=== PATIENT | female | born 1980 | race Asian ===

== ENCOUNTER 2017-06-01 13:10 | Inpatient (IN) | payer OTHER ==
[~2017-06-01] VITALS: Ht 160 cm; Wt 65.8 kg
[~2017-06-01 13:10] MED LIST: IRON65TA3 PO; PREN-385 PO
[2017-06-01] MEDS ORDERED: TERBUTALINE 1 MG/ML VIAL SUBQ ONE (13:25)
[2017-06-01] MEDS ORDERED: LACTATED RINGERS 1,000 ML IV SCH (13:30)
[2017-06-01] MEDS ORDERED: TRIAMCINOLONE 40 MG/ML 5ML VIAL ONE (13:48)
[2017-06-01] MEDS ORDERED: ONDANSETRON 4 MG/2 ML VIAL ONE (13:59)
[2017-06-01] MEDS ORDERED: METOCLOPRAMIDE 10 MG/2 ML INJ VIAL ONE (13:59)
[2017-06-01] MEDS ORDERED: MORPHINE SULFATE 10 MG/ML SYR ONE (14:00)
[2017-06-01] MEDS ORDERED: MORPHINE PRES FREE 10 MG/10 ML AMP IV ONE (14:00)
[2017-06-01] MEDS ORDERED: ceFAZolin 1,000 MG VIAL ONE ×2 (14:10→22:08)
[2017-06-01] MEDS: OXYTOCIN 10 UNITS/ML VIAL ONE ×2 (14:25→15:14)
[2017-06-01] MEDS ORDERED: NALOXONE 0.4 MG/ML VIAL IVP PRN ×2 (14:30)
[2017-06-01] MEDS ORDERED: diphenhydrAMINE 50 MG/ML VIAL IVP PRN (14:30)
[2017-06-01] MEDS ORDERED: OXYTOCIN 20 UNITS/LR PREMIX 1,000 ML IV SCH (14:30)
[2017-06-01] MEDS ORDERED: MEPERIDINE 25 MG/ML SYR ONE (14:40)
[2017-06-01] MEDS ORDERED: diphenhydrAMINE 50 MG/ML VIAL ONE (15:10)
[2017-06-01] MEDS ORDERED: OXYTOCIN 20 UNITS/LR PREMIX 1,000 ML IV ONE (15:10)
[2017-06-01] MEDS ORDERED: METHYLERGONOVINE 0.2 MG/ML AMP IM PRN ×2 (15:40→22:00)
[2017-06-01] MEDS ORDERED: METHYLERGONOVINE 0.2 MG/ML AMP ONE (15:41)
[2017-06-01 15:43] LABS: BASOPHILS # (AUTO) 0.1 K/uL (0.00-0.22); BASOPHILS % (AUTO) 0.3 % (0.0-2.0); EOSINOPHILS # (AUTO) 0.3 K/uL (0-0.4); EOSINOPHILS % (AUTO) 1.4 % (0.0-4.0); HEMATOCRIT 37.7 % (36-48); HEMOGLOBIN 12.1 g/dL (12.0-16.0); LYMPHOCYTES # (AUTO) 0.7 K/uL (2.5-16.5); LYMPHOCYTES % (AUTO) 3.9 % (20.5-51.1); MEAN CORPUSCULAR HEMOGLOBIN 31 pg (27-31); MEAN CORPUSCULAR HGB CONC 32 g/dL (33-37); MEAN CORPUSCULAR VOLUME 97 fL (80-94); MONOCYTES # (AUTO) 0.6 K/uL (0.8-1.0); MONOCYTES % (AUTO) 3.2 % (1.7-9.3); NEUTROPHILS # (AUTO) 16.6 K/uL (1.8-7.7); NEUTROPHILS % (AUTO) 91.2 % (42.2-75.2); PLATELET COUNT (AUTO) 187 K/uL (140-450); RED BLOOD CELL COUNT(AUTO) 3.88 MIL/uL (4.20-5.40); RED CELL DISTRIBUTION WIDTH 12.9 % (11.6-13.7); WHITE BLOOD COUNT (AUTO) 18.3 K/uL (4.8-10.8)
[2017-06-01] MEDS ORDERED: TRIMETHOBENZAMIDE 200 MG/2 ML SYR IM PRN (22:00)
[2017-06-01] MEDS ORDERED: MEASLES, MUMPS, AND RUBELLA 1 VIAL SQVAC PRN (22:00)
[2017-06-01] MEDS ORDERED: oxyCODONE/APAP 5/325 MG 1 TAB TAB PO PRN (22:00)
[2017-06-01] MEDS ORDERED: IBUPROFEN 800 MG TAB PO PRN (22:00)
[2017-06-01] MEDS ORDERED: TEMAZEPAM 15 MG CAP PO PRN (22:00)
[2017-06-02] MEDS: OXYTOCIN 20 UNITS/LR PREMIX 1,000 ML IV SCH ×2 (01:33→11:04)
[2017-06-02] MEDS ORDERED: ceFAZolin 1,000 MG VIAL ONE (06:29)
[2017-06-02 09:03] LABS: HEMATOCRIT 26.3 % (36-48); HEMOGLOBIN 8.8 g/dL (12.0-16.0); MEAN CORPUSCULAR HEMOGLOBIN 32 pg (27-31); MEAN CORPUSCULAR HGB CONC 34 g/dL (33-37); MEAN CORPUSCULAR VOLUME 96 fL (80-94); PLATELET COUNT (AUTO) 180 K/uL (140-450); RED BLOOD CELL COUNT(AUTO) 2.73 MIL/uL (4.20-5.40); RED CELL DISTRIBUTION WIDTH 13.1 % (11.6-13.7); WHITE BLOOD COUNT (AUTO) 12.6 K/uL (4.8-10.8)
[2017-06-02] MEDS: SIMETHICONE 80 MG TAB.CHEW PO PRN ×3 (09:29→17:35)
[2017-06-02 09:39] LABS: BASOPHILS % (MANUAL) 0 % (0-2); EOSINOPHILS % (MANUAL) 0 % (0-4); LYMPHOCYTES % (MANUAL) 6 % (20-46); MONOCYTES % (MANUAL) 9 % (5-12)
[2017-06-02] MEDS: DOCUSATE SOD/SENNA 50/8.6 MG 1 TAB PO SCH (21:00)
[2017-06-03] MEDS: HYDROcodone/APAP 5/325 MG 1 TAB TAB PO PRN ×4 (02:20→21:05)
[2017-06-03 09:16] LABS: RAPID PLASMA REAGIN NON-REACTIVE (Non Reactiv)
[2017-06-03] MEDS: FERROUS SULFATE 325 MG TABEC PO SCH ×3 (10:38→17:51)
[2017-06-03] MEDS: DOCUSATE SOD/SENNA 50/8.6 MG 1 TAB PO SCH (21:04)
[2017-06-04] MEDS: HYDROcodone/APAP 5/325 MG 1 TAB TAB PO PRN ×2 (06:48→12:06)
[2017-06-04] MEDS: FERROUS SULFATE 325 MG TABEC PO SCH (09:55)
[2017-06-04] MEDS ORDERED: IBUP-1842 PO (13:13)
[2017-06-04] MEDS ORDERED: [UNRECOGNIZED DRUG - CODE] PO (13:14)
[2017-06-04] MEDS ORDERED: BISA-213 RC (13:14)
== END 2017-06-04 14:10 | disposition home or self-care (01) | DRG 765 ==
LOC: MFCC 13:10 → EDUNIT# 13:10 → MFCC 16:05
PROVIDERS: ADMIT Obstetrics & Gynecology; ATTEND Obstetrics & Gynecology
PROC: 10D00Z1 Extraction of Products of Conception, Low, Open Approach (ICD-10-PCS; principal; 2017-06-01 14:00)
DX: O32.2XX0 Maternal care for transverse and oblique lie, not applicable or unspecified (principal); O60.23X0 Term delivery with preterm labor, third trimester, not applicable or unspecified; Z82.49 Family history of ischemic heart disease and other diseases of the circulatory system; Z37.0 Single live birth; Z3A.36 36 weeks gestation of pregnancy; Z28.21 Immunization not carried out because of patient refusal
CPT/HCPCS: 36415; 85025; 86592; 86709; 86762; 86886; 86900; 86901; 87340; J0690; J1200; J2175; J2210; J2270; J2405; J2590; J2765; J3105; J3301; J7060; J7120